=== PATIENT | male | born 1950 | race Caucasian/White ===

== ENCOUNTER 2018-07-27 20:39 | Inpatient (IN) | payer MEDICARE, BC ==
[~2018-07-27] VITALS: Ht 185.4 cm; Wt 64.9 kg
--- NOTE | 2018-07-27 10:30 | NUR ---
Received patient from ED awake, very confused. Unable to hold a normal conversation, or to sign any admit papers. Patient easily agitated , and verbalized seeing things that wernt there. Multiple attempts to reorient to the environment were made. Patient stated ' I am a baby', ' Give me the solomon to the apple'. VS are stable, patient in jacki chair at nurses station for close observation at this time.
--- NOTE | 2018-07-27 21:00 | NUR ---
Patient BIB pvt ambulance. Coming from [facility] on a 5150 for GD. AAOx2. Speech is clear, speaks in complete sentences. Per EMT patient is ambulatory with assistance, uses cane. No respiratory distress noted, no sob, no cough. No cardiovascular distress noted, all pulses palpable. No GI/ noted. Fall precautions implemented per protocol. Sitter at side
[2018-07-27 21:02] LABS: BASOPHILS % (AUTO) 0.9 % (0.0-2.0); EOSINOPHILS # (AUTO) 0.1 K/uL (0.0-0.7); EOSINOPHILS % (AUTO) 1.3 % (0.0-7.0); HEMATOCRIT 36.4 % (36.7-47.1); HEMOGLOBIN 12.4 g/dL (12.5-16.3); LYMPHOCYTES # (AUTO) 1.4 K/uL (20.0-40.0); LYMPHOCYTES % (AUTO) 29.8 % (20.5-51.5); MEAN CORPUSCULAR HEMOGLOBIN 30.9 uug (23.8-33.4); MEAN CORPUSCULAR HGB CONC 34 g/dL (32.5-36.3); MEAN CORPUSCULAR VOLUME 91.2 fL (73.0-96.2); MONOCYTES # (AUTO) 0.7 K/uL (2.0-10.0); MONOCYTES % (AUTO) 14.9 % (0.0-11.0); NEUTROPHILS # (AUTO) 2.6 K/uL (1.8-8.9); NEUTROPHILS % (AUTO) 53.1 % (38.5-71.5); PLATELET COUNT (AUTO) 209 K/uL (152-348); RED BLOOD CELL COUNT(AUTO) 3.99 MIL/uL (4.06-5.63); WHITE BLOOD COUNT (AUTO) 4.8 K/uL (3.6-10.2)
[2018-07-27 21:06] LABS: CREATININE 0.9 mg/dL (0.6-1.3); POTASSIUM 4.5 mmol/L (3.5-5.1)
[2018-07-27] MEDS ORDERED: SODIUM CHLORIDE 0.9% ×2 (21:13→21:14)
[2018-07-27] MEDS ORDERED: TRAZ-182 PO (21:13)
[2018-07-27] MEDS ORDERED: EMTR1TAB14 PO (21:13)
[2018-07-27] MEDS ORDERED: RITO100T PO (21:13)
[2018-07-27] MEDS ORDERED: [UNRECOGNIZED DRUG - OTHER] (21:13)
[2018-07-27] MEDS ORDERED: ATOR10TA PO (21:13)
[2018-07-27] MEDS ORDERED: ARIP15TA3 PO (21:13)
[2018-07-27] MEDS ORDERED: NAPR375T PO (21:13)
[2018-07-27] MEDS ORDERED: ALEN70TA6 PO (21:13)
[2018-07-27] MEDS ORDERED: CHOL200074 PO (21:13)
[2018-07-27] MEDS ORDERED: TRAM50TA2 PO (21:13)
[2018-07-27] MEDS ORDERED: ESCI20TA PO (21:13)
[2018-07-27] MEDS ORDERED: GABA-536 PO (21:13)
[2018-07-27] MEDS ORDERED: ALBU18HF2 IH (21:13)
[2018-07-27] MEDS ORDERED: RANI150T8 PO (21:13)
[2018-07-27] MEDS ORDERED: DARU600T2 PO (21:13)
[2018-07-27] MEDS ORDERED: LORA-259 PO (21:13)
[2018-07-27] MEDS ORDERED: UMEC1BLS IH (21:13)
[2018-07-27] MEDS ORDERED: ALBUTEROL 5 MG/ML (21:14)
--- NOTE | 2018-07-27 22:00 | NUR ---
Called to give report to MHU. Per Darrel, they will call when ready for report and transfer.
--- NOTE | 2018-07-27 22:29 | NUR ---
Report givent to PAUL Su
--- NOTE | 2018-07-27 22:50 | NUR ---
patient transfered to MHU on [facility], patient in stable condition.
[2018-07-27] MEDS ORDERED: MAGNESIUM HYDROXIDE 30 ML LIQUID UDC PO PRN (23:30)
[2018-07-27] MEDS ORDERED: MAG HYDROX/AL HYDROX/SIMETH 30 ML LIQUID UDC PO PRN (23:30)
[2018-07-27] MEDS: TEMAZEPAM 7.5 MG CAPSULE PO PRN (23:57)
--- NOTE | 2018-07-28 00:10 | NUR ---
Patient put in bed per request earlier, sleeping pill given at that time per order, bed alarm activated. A short time later, alarm sounded. Staff arrived , patient out of bed yelling and screaming, ' Give me food, order it, give me my computer now' ' I own a whole wing of this hotel '. Attempts made to calm patient down, reorient to environment. Food given, staff sitting in room with patient, who remained somewhat angry and agitated. A medication was given for agitation and staff continues to monitor patient for safety.
[2018-07-28] MEDS: CLONAZEPAM 0.5 MG TABLET PO PRN ×2 (00:48→05:21)
--- NOTE | 2018-07-28 03:18 | NUR ---
Patient in bed sleeping. Bed in lowest position and locked, alarm on. Staff doing frequent rounding. Continuing to monitor closely through out the night for safety and to meet any needs that may arise.
[2018-07-28] MEDS: ACETAMINOPHEN 325 MG TABLET PO PRN (05:00)
--- NOTE | 2018-07-28 06:27 | NUR ---
Patient slept very little last night. About 1 to 2 hours so far. Medicated during the night with little to no effect on the patient. However, Patient remained injury free do to the staff taking turns sitting with him, and safety plan in place. Patient continues to be confused and agitated. Will endorse plan of care to on coming shift.
[2018-07-28 07:30] VITALS: BP 100/67
[2018-07-28] MEDS ORDERED: Medication Not On Formulary EA (Aripiprazole (Abilify) 15 MG) PO SCH (10:15)
[2018-07-28] MEDS ORDERED: Medication Not On Formulary EA (Escitalopram Oxalate (Lexapro) 20 MG) PO SCH (10:15)
[2018-07-28] MEDS ORDERED: ALBUTEROL SULFATE 8 GM HFA.AER.AD IH SCH (10:45)
[2018-07-28] MEDS ORDERED: ALBUTEROL SULFATE 2.5 MG/3 ML NEBU NEB PRN (11:15)
[2018-07-28] MEDS: ARIPIPRAZOLE 5 MG TABLET PO SCH (11:31)
[2018-07-28] MEDS: ESCITALOPRAM OXALATE 10 MG TABLET PO SCH (11:31)
[2018-07-28] MEDS: GABAPENTIN 400 MG CAPSULE PO SCH ×2 (12:04→16:23)
[2018-07-28] MEDS: PREZISTA 600 MG PO SCH ×2 (14:06→16:24)
[2018-07-28] MEDS: ODEFSEY PO SCH (14:06)
[2018-07-28] MEDS: RITONAVIR 100 MG PO SCH ×2 (14:06→16:24)
[2018-07-28 14:36] LABS: *BILIRUBIN,URIN NEGATIVE (NEGATIVE); *CLARITY,URINE CLEAR (CLEAR); *COLOR,URINE YELLOW (YELLOW); *KETONES,URINE NEGATIVE (NEGATIVE); *UROBILINOGEN,URINE 0.2 E.U./dl (NORMAL); LEUKOCYTE ESTERASE ,URINE NEGATIVE (NEGATIVE); NITRITE, URINE NEGATIVE (NEGATIVE); PH,URINE 5.5 (5.0-8.0); UGLUCOSE NEGATIVE (NEGATIVE)
[2018-07-28 15:24] VITALS: BP 92/54
[2018-07-28 16:05] LABS: *BLOOD, URINE TRACE (NEGATIVE)
[2018-07-28 16:07] LABS: MUCUS,URINE FEW /LPF (0-FEW); RBC,URINE 0-3 /HPF (0-3); WBC,URINE NONE SEEN /HPF (0-3)
[2018-07-28] MEDS: FAMOTIDINE 20 MG TABLET PO SCH (16:23)
[2018-07-28] MEDS ORDERED: DARUNAVIR ETHANOLATE 600 MG PO SCH (17:00)
[2018-07-28] MEDS ORDERED: NAPROXEN 375 MG PO SCH (17:00)
[2018-07-28] MEDS: NAPROXEN 250 MG TABLET PO SCH (17:02)
[2018-07-28 20:00] VITALS: BP 93/51
--- NOTE | 2018-07-28 20:00 | NUR ---
RECEIVED PATIENT IN HIS ROOM. HE IS NOTED AWAKE A/O X 2. CONTINUE ON 1:1 SUPERVISION FOR SAFETY AND FALL PRECAUTION. PATIENT NOTED DELUSIONAL, APPEARS TO TALK TO HIMSELF, FLIGHT OF IDEAS, TANGENTAL, WITH BLUNTED AFFECT. HE IS ALSO NOTED WITH POOR INSIGHT AND JUDGMENT TO THE REASON FOR HIS ADMISSION TO MHU. V/S STABLE AT THIS TIME. HE WAS REASSURED FOR HIS SAFETY. WILL CONTINUE TO MONITOR.
[2018-07-28] MEDS: ATORVASTATIN 10 MG TABLET PO SCH (20:33)
[2018-07-28] MEDS: TRAZODONE 50 MG TABLET PO SCH (20:33)
--- NOTE | 2018-07-29 01:00 | NUR ---
A STIMULATOR FOR BACK PAIN WAS NOTED IMPLANTED IN HIS RIGHT SIDE OF HIS BACK. PER SISTER, PATIENT HAD THE STIMULATOR IMPLANTED 6 MONTHS AGO. WILL CONTINUE TO MONITOR.
[2018-07-29] MEDS: TEMAZEPAM 7.5 MG CAPSULE PO PRN (01:57)
--- NOTE | 2018-07-29 03:00 | NUR ---
A WOUND/ABRASION OF APPROX [id number] WAS NOTED TO THE LEFT BUTTOCKS/SACRAL AREA. Z-GUARD. MEPILEX DRESSING WAS APPLY, Z-GUARD AND A WOUND CONSUL WAS ALSO ORDERED. WILL CONTINUE WITH PLAN OF CARE.
[2018-07-29 07:21] LABS: CREATININE 0.7 mg/dL (0.6-1.3); POTASSIUM 4.2 mmol/L (3.5-5.1)
[2018-07-29 07:30] VITALS: BP 132/80
[2018-07-29] MEDS: FAMOTIDINE 20 MG TABLET PO SCH ×2 (08:36→16:15)
[2018-07-29] MEDS: NAPROXEN 250 MG TABLET PO SCH ×2 (08:36→17:34)
[2018-07-29] MEDS: GABAPENTIN 400 MG CAPSULE PO SCH ×3 (08:37→16:15)
[2018-07-29] MEDS: CHOLECALCIFEROL 1,000 UNIT TABLET PO SCH (08:37)
[2018-07-29] MEDS: PREZISTA 600 MG PO SCH ×2 (08:37→16:16)
[2018-07-29] MEDS: RITONAVIR 100 MG PO SCH ×2 (08:37→16:16)
[2018-07-29] MEDS: ESCITALOPRAM OXALATE 10 MG TABLET PO SCH (08:37)
[2018-07-29] MEDS: ARIPIPRAZOLE 5 MG TABLET PO SCH (08:37)
[2018-07-29] MEDS: ODEFSEY PO SCH (08:38)
[2018-07-29] MEDS ORDERED: ARIPIPRAZOLE 5 MG TABLET PO SCH (09:00)
--- NOTE | 2018-07-29 14:55 | NUR ---
WOUND CARE CONSULT: PT PRESENTS WITH HEALING ABRASION TO LEFT BUTTOCK. RECOMMENDATIONS MADE FOR SKIN PROTECTION AND WOUND CARE. DISCUSSED WITH NURSING STAFF. PT IS AMBULATORY AND CONTINENT. WILL SEE PRN. VILCHIS IN AGREEMENT WITH PLAN OF CARE. Addendum: 07/29/18 at 1456 by MILAGRO BERRY RN Amended: Links added.
[2018-07-29] MEDS: CLONAZEPAM 0.5 MG TABLET PO PRN (15:40)
--- NOTE | 2018-07-29 15:52 | NUR ---
Went to round on pt and noted that he is agitated and he keeps on trying to kiss the floor! Assisted pt to get up and tried to talk to him. Pt stated that he wants to have bowel mov't. Took pt to the toilet and still doing the same thing of trying to kiss the floor. [facility] and taken to nurses station and klonopin given as ordered. Pt at the moment is constantly repeating his name non stop. will continue to monitor.
--- NOTE | 2018-07-29 15:58 | NUR ---
Tried to collect urine specimen but pt too agitated and confused. Will cont to monitor.
[2018-07-29 16:12] VITALS: BP 105/59
[2018-07-29] MEDS: TRAMADOL HCL 50 MG TABLET PO PRN (16:15)
--- NOTE | 2018-07-29 18:55 | NUR ---
Resting in gerichair at this time. Unable to comply with fluid restriction of 1L for pt unable to understand concept of treatment at this time. In addition, Ensure with meals is in tray as well. Pt at height of agitation had skin tear of R elbow, picture taken. Wound cleansed with saline, pat dried with gauze and band aid applied. will cont to monitor.
[2018-07-29 19:39] VITALS: BP 105/59
[2018-07-29] MEDS: TRAZODONE 50 MG TABLET PO SCH (20:50)
[2018-07-29] MEDS: ATORVASTATIN 10 MG TABLET PO SCH (20:50)
[2018-07-30] MEDS: CLONAZEPAM 0.5 MG TABLET PO PRN ×3 (01:15→16:42)
[2018-07-30] MEDS: TEMAZEPAM 7.5 MG CAPSULE PO PRN ×2 (01:15→23:36)
--- NOTE | 2018-07-30 04:21 | NUR ---
Received patient in bed with 1:1 sitter at bedside for his safety. AAO x2, confused. No acute distress was noted. On fluid restriction 1 L/24 hour. Blunted affect. Compliant with medication. Urine sample collected and sent to the lab. All due medication given as ordered. Safety measures maintained. Continue to monitor and will endorse to the day shift nurse accordingly.
[2018-07-30 07:30] VITALS: BP 116/54
[2018-07-30 07:48] LABS: CREATININE 0.7 mg/dL (0.6-1.3); MAGNESIUM 1.9 mg/dL (1.8-2.4); PHOSPHOROUS 2.7 mg/dL (2.5-4.9); POTASSIUM 4.9 mmol/L (3.5-5.1); URIC ACID 3.1 mg/dL (3.5-7.2)
[2018-07-30] MEDS: TRAMADOL HCL 50 MG TABLET PO PRN ×2 (07:53→16:47)
[2018-07-30 07:58] LABS: THYROID STIMULATING HORMONE 3.331 mIU/mL (0.358-3.740)
[2018-07-30] MEDS: PREZISTA 600 MG PO SCH ×2 (08:09→16:03)
[2018-07-30] MEDS: ODEFSEY PO SCH (08:09)
[2018-07-30] MEDS: RITONAVIR 100 MG PO SCH ×2 (08:09→16:02)
[2018-07-30] MEDS: GABAPENTIN 400 MG CAPSULE PO SCH ×3 (08:10→16:01)
[2018-07-30] MEDS: CHOLECALCIFEROL 1,000 UNIT TABLET PO SCH (08:10)
[2018-07-30] MEDS: FAMOTIDINE 20 MG TABLET PO SCH ×2 (08:12→16:01)
[2018-07-30] MEDS: NAPROXEN 250 MG TABLET PO SCH ×2 (08:12→17:00)
[2018-07-30] MEDS: ESCITALOPRAM OXALATE 10 MG TABLET PO SCH (08:12)
[2018-07-30] MEDS ORDERED: ARIPIPRAZOLE 5 MG TABLET PO SCH (09:00)
--- NOTE | 2018-07-30 09:03 | NUR ---
Initial Discharge Instructions: The patient currently lives alone in his two-story condominium [[address] [facility] [place], [address]]. Per patient he would like to return there once discharged. The patient expressed that he has difficulty getting up and down the stairs and uses a cane to ambulate inside his home and uses a walker to ambulate out in public. Per Dontae ([phone]), pt's sister, she is worried about the pt. because hes recently lost so much weight and is fragile. SW Scratcher Tender/SW staff will continue to collaborate with interdisciplinary team to ensure safe and proper discharge planning.
[2018-07-30 16:28] VITALS: BP 110/64
--- NOTE | 2018-07-30 18:22 | NUR ---
received patient awake on bed, verbally responsive, on 1:1 sitter, secondary to fall risk and safety, patient med com pliant, hyperverbal, with loose association of thoughts, denies pain, denies SI nd HI, unsteady gait with PT,visited by family, will continue monitor
--- NOTE | 2018-07-30 19:55 | NUR ---
RECEIVED PATIENT IN HIS ROOM IN BED. HE IS NOTED AWAKE A/O X 2. CONTINUE ON 1:1 SUPERVISION FOR SAFETY AND FALL PRECAUTION. HE IS NOTED WITH FLIGHT OF IDEAS, HYPERVERBAL, AND DELUSIONAL. V/S STABLE AT THIS TIME. PT WAS REASSURED FOR HIS SAFETY. WILL CONTINUE TO MONITOR.
[2018-07-30 20:21] VITALS: BP 104/63
[2018-07-30] MEDS: TRAZODONE 50 MG TABLET PO SCH (20:25)
[2018-07-30] MEDS: ATORVASTATIN 10 MG TABLET PO SCH (20:25)
--- NOTE | 2018-07-30 23:40 | NUR ---
PATIENT NOTED RESTLESS, HYPERVERBAL, EASILY IRRITABLE AND DELUSIONAL. TEMAZEPAM 7.5 MG PO PRN WAS GIVEN FOR INSOMNIA. WILL CONTINUE TO MONITOR.
[2018-07-31] MEDS: CLONAZEPAM 0.5 MG TABLET PO PRN ×4 (02:16→23:52)
[2018-07-31] MEDS: TRAMADOL HCL 50 MG TABLET PO PRN ×3 (03:53→16:34)
--- NOTE | 2018-07-31 06:50 | NUR ---
PATIENT SLEPT FOR APPROX 2.45 HRS LAST NIGHT. HE CONTINUE WITH PRESSURED SPEECH, FLIGHT OF IDEAS, DISORGANIZED THOUGHTS. HE WILL CONTINUE ON 1:1 SUPERVISION.
[2018-07-31 07:53] VITALS: BP 131/74
[2018-07-31 08:02] LABS: CREATININE 0.8 mg/dL (0.6-1.3); MAGNESIUM 2.2 mg/dL (1.8-2.4); PHOSPHOROUS 3.2 mg/dL (2.5-4.9); POTASSIUM 4.6 mmol/L (3.5-5.1); URIC ACID 3.4 mg/dL (3.5-7.2)
[2018-07-31] MEDS: ESCITALOPRAM OXALATE 10 MG TABLET PO SCH (08:07)
[2018-07-31] MEDS: FAMOTIDINE 20 MG TABLET PO SCH ×2 (08:08→17:01)
[2018-07-31] MEDS: ACETAMINOPHEN 325 MG TABLET PO PRN (08:08)
[2018-07-31] MEDS: ARIPIPRAZOLE 10 MG TABLET PO SCH (08:08)
[2018-07-31] MEDS: CHOLECALCIFEROL 1,000 UNIT TABLET PO SCH (08:08)
[2018-07-31] MEDS: GABAPENTIN 400 MG CAPSULE PO SCH ×3 (08:08→17:01)
[2018-07-31] MEDS: NAPROXEN 250 MG TABLET PO SCH ×2 (08:09→17:00)
[2018-07-31] MEDS: ODEFSEY PO SCH (08:10)
[2018-07-31] MEDS: PREZISTA 600 MG PO SCH ×2 (08:10→17:00)
[2018-07-31] MEDS: RITONAVIR 100 MG PO SCH ×2 (08:17→17:00)
[2018-07-31] MEDS ORDERED: ARIPIPRAZOLE 5 MG TABLET PO SCH (09:00)
[2018-07-31 16:08] VITALS: BP 135/82
--- NOTE | 2018-07-31 16:49 | NUR ---
GROUP NOTE: Patients were asked to draw a picture of how they see themselves and to reflect on the picture. Subjective: "..." Objective: Patient was asleep in bed when social insurance adviser arrived to patient room. Patient unable to be woken up. Assessment: Patient presented calm and asleep. Plan: insulation worker will continue to encourage group attendance as scheduled. insulation worker will continue to provide support to the patient to encourage interaction with peers.
--- NOTE | 2018-07-31 18:32 | NUR ---
received patient awake on bed, alert oriented x1, with 1:1 sitter, patient reported having 2 1/2 hr sleep last night, patient irritable and complains of abdominal pain and wanting to have BM, prn meds given , patient still has loose thoughts, PATIENT HAD GOOD BM TODAY, will continue monitor
[2018-07-31] MEDS: TRAZODONE 50 MG TABLET PO SCH (20:36)
[2018-07-31] MEDS: ATORVASTATIN 10 MG TABLET PO SCH (20:36)
[2018-07-31 21:07] VITALS: BP 124/73
[2018-08-01] MEDS: CLONAZEPAM 0.5 MG TABLET PO PRN ×3 (03:20→23:35)
[2018-08-01] MEDS: ALENDRONATE SODIUM 70 MG TABLET PO SCH (05:55)
[2018-08-01 07:30] VITALS: BP 115/79
[2018-08-01] MEDS: ARIPIPRAZOLE 10 MG TABLET PO SCH (08:00)
[2018-08-01] MEDS: CHOLECALCIFEROL 1,000 UNIT TABLET PO SCH (08:00)
[2018-08-01] MEDS: FAMOTIDINE 20 MG TABLET PO SCH ×2 (08:00→17:23)
[2018-08-01] MEDS: ESCITALOPRAM OXALATE 10 MG TABLET PO SCH (08:00)
[2018-08-01] MEDS: GABAPENTIN 400 MG CAPSULE PO SCH ×3 (08:01→17:22)
[2018-08-01] MEDS: ODEFSEY PO SCH (08:01)
[2018-08-01] MEDS: PREZISTA 600 MG PO SCH ×2 (08:03→17:22)
[2018-08-01] MEDS: RITONAVIR 100 MG PO SCH ×2 (08:03→17:22)
[2018-08-01] MEDS: NAPROXEN 250 MG TABLET PO SCH ×2 (08:03→17:20)
--- NOTE | 2018-08-01 11:10 | NUR ---
Discharge planning: tunnel worker received phone call from patient sister, Dontae [[phone]], inquiring about about patient signing checks to pay bills. Per Dontae, patient , Gregory [[phone]] who is from [facility], is concerned that patient is not paying his bills and in particular his insurance bill. Per Dontae, Gregory would like patient to sign checks in order to pay the bills and states that on Sunday, Gregory was told this could not happen. tunnel worker explained to Dontae that patient cannot sign anything financial right now as he is in a crisis state and on an involuntary hold. tunnel worker further explained that hospital and patient would need to know where checks are being paid to to ensure patient finances are not jeopardized. Dontae stated she understood. tunnel worker informed Dontae that gag writer would need to consult with janitor supervisor, Amy, prior to giving a definitive answer to inquiry. Dontae was again understanding. tunnel worker has reached out to janitor supervisor and awaiting further guidance on matter. tunnel worker will continue to follow-up and remain available to family and patient.
--- NOTE | 2018-08-01 14:05 | NUR ---
Discharge planning: hot blast worker received approval from animal humane agent supervisor, Amy, to allow patient to sign personal checks with applicable bills present [see previous dc planning note] to ensure checks are being paid to correct bills and to ensure patient financial safety. hot blast worker arrived to patient bedside to facilitate conversation about having patient , Gregory, bringing in checks to have signed and paid toward bills. hot blast worker explained to patient that his , Gregory, is concerned about bills not being paid and would like to bring check in for patient to sign. Patient agreed to signing checks with bills present. hot blast worker then facilitated conversation about patient safety in his home. Patient stated that he lives at home alone in a 2-story house. Patient states that he uses a cane to ambulate through home. hot blast worker inquired how patient gets upstairs and patient stated he "scoots up steps" on his bottom. hot blast worker asked how patient pays his bills and patient stated that he receives assistance from "ADAP" for his medical bills and that his housing/utility bills are paid through his MADELYN which he pays monthly. Patient then became tangential and began talking about how he forgets that he leaves the stove on and gas on. Patient then stated that he has "only been once" and that he has "one wedding ring". Patient became labile and easily irritable. hot blast worker ended interview and left room. Per interview, it appears that patient may benefit from SNF placement to ensure patient safety. hot blast worker researched ADAP and found that it is an AIDS insurance assistance program called AIDS Drug Assistance Program and is managed under Office of AIDS Insurance Premium Payment (OA-YESSICA) Assistance [ ] that covers insurance premiums and medications. hot blast worker called [facility] and spoke with Kenia, who states that patient is covered under program until 11/03/2018 and that his insurance has been covered until 08/19/2018. Per Kenia, there are no outstanding bills that she shows, but suggests that patient call [facility] to ensure there are no outstanding balances. hot blast worker then called patient , Gregory [[phone]], and informed him that he could bring checks with bills to unit and have patient sign them. Gregory stated he understood. Gregory then stated that he is getting bills for patient insurance [[facility]] and is unsure if they are being paid. hot blast worker explained that patient is receiving ADAP and explained program. hot blast worker relayed information from Kenia [see above] and advised that he call [facility] to ensure there are no outstanding bills. Gregory agreed. hot blast worker then facilitated conversation about patient safety at home. Gregory agreed that patient is not safe at home in his current condition. Gregory agrees that patient should go to a SNF once ready for discharge to ensure patient safety. Per Gregory, he would like facilities in the [place], [place], or [place] areas. hot blast worker assured that an attempt to find placement in these areas would be made, but that finding placement in those areas is limited and patient may need alternative placement in the [facility] Area. Gregory agreed. Gregory then requested that perinatal social worker call his and patient friend, Vishnu Josse [[phone]], to explain this information as well as Gregory states he has difficulty fully understanding and would like additional support in hearing information. hot blast worker agreed and called Vishnu. hot blast worker called and spoke with Vishnu. hot blast worker explained all information as stated above. Vishnu was agreeable to information and to patient going to a SNF once ready for discharge. hot blast worker will look for SNF placement for patient and be in contact with patient and family. hot blast worker will continue to remain available to patient and family and to aide in a safe and proper discharge.
[2018-08-01 16:00] VITALS: BP 129/67
[2018-08-01 20:16] VITALS: BP 142/82
[2018-08-01] MEDS: TRAZODONE 50 MG TABLET PO SCH (20:17)
[2018-08-01] MEDS: ATORVASTATIN 10 MG TABLET PO SCH (20:17)
[2018-08-01] MEDS: TEMAZEPAM 7.5 MG CAPSULE PO PRN (23:35)
[2018-08-02 07:30] VITALS: BP 104/61
[2018-08-02] MEDS: GABAPENTIN 400 MG CAPSULE PO SCH ×3 (08:57→17:29)
[2018-08-02] MEDS: FAMOTIDINE 20 MG TABLET PO SCH ×2 (08:57→17:29)
[2018-08-02] MEDS: ARIPIPRAZOLE 10 MG TABLET PO SCH (08:57)
[2018-08-02] MEDS: ESCITALOPRAM OXALATE 10 MG TABLET PO SCH (08:57)
[2018-08-02] MEDS: CHOLECALCIFEROL 1,000 UNIT TABLET PO SCH (08:57)
[2018-08-02] MEDS: PREZISTA 600 MG PO SCH ×2 (08:58→17:27)
[2018-08-02] MEDS: ODEFSEY PO SCH (08:58)
[2018-08-02] MEDS: NAPROXEN 250 MG TABLET PO SCH ×2 (08:58→17:29)
[2018-08-02] MEDS: RITONAVIR 100 MG PO SCH ×2 (09:26→17:28)
[2018-08-02] MEDS: TRAMADOL HCL 50 MG TABLET PO PRN (12:14)
--- NOTE | 2018-08-02 13:00 | NUR ---
Gps/Clinical Engineer- Navi Patel DNP was informed of the discharge plan. Also reported blood sugar at 1145 BS was 428 covered with 15 units of regular insulin administered to his rloq of abdomen SQ. Addendum: 08/02/18 at 1340 by COORNA PANDEY LVN Charted on a wrong patient, error
[2018-08-02 16:00] VITALS: BP 98/56
--- NOTE | 2018-08-02 17:00 | NUR ---
PHARMACIST DEANDRA CALLED AND INFORMED 2 PTS OWN MEDICATIONS (PRIZISTA AND RESTNOVIR) WILL RUN OUT SOON. THIS NURSE CALLED PT'S PARTNER, ABRAHMA, TO INFORM HIM AND ASK IF HE CAN BRING MORE SUPPLY. ABRAHAM INFORMED THAT DUE TO TIME CONSTRAINTS FROM WORK, HE WILL BE UNABLE TO DRIVE TO THE HOSPITAL BUT WILL BE ABLE TO MAIL THE MEDICATIONS OUT TOMORROW (SUNDAY).
[2018-08-02] MEDS: Z GUARD REMEDY PASTE 57 GM TUBE TOP PRN (17:06)
--- NOTE | 2018-08-02 17:45 | NUR ---
Gps/Hull Molder- Remains with sitter for safety. Left coccygeal area with small wound, wounds care done as ordered, cleansed with NS, pat dry, z-guard applied, mepilex. Ambulated to the bathroom, continence noted. Lower ext. pain , has a pain pump right buttock area. Frequent repositioning encouraged, pressure relief.
--- NOTE | 2018-08-02 18:50 | NUR ---
Gps/Mortgage Loan Specialist- Fluid restrictions observed and in progress. Sitter was well informed
[2018-08-02 20:52] VITALS: BP 112/61
[2018-08-02] MEDS: ATORVASTATIN 10 MG TABLET PO SCH (21:19)
[2018-08-02] MEDS: TRAZODONE 50 MG TABLET PO SCH (21:19)
[2018-08-02] MEDS: CLONAZEPAM 0.5 MG TABLET PO PRN (21:19)
[2018-08-02] MEDS: TEMAZEPAM 7.5 MG CAPSULE PO PRN (23:22)
[2018-08-03] MEDS: CLONAZEPAM 0.5 MG TABLET PO PRN ×2 (04:58→14:41)
[2018-08-03] MEDS: Z GUARD REMEDY PASTE 57 GM TUBE TOP PRN (04:59)
[2018-08-03 07:30] VITALS: BP 112/60
[2018-08-03] MEDS: NAPROXEN 250 MG TABLET PO SCH ×2 (08:53→17:04)
[2018-08-03] MEDS: ODEFSEY PO SCH (08:53)
[2018-08-03] MEDS: PREZISTA 600 MG PO SCH ×2 (08:53→16:57)
[2018-08-03] MEDS: GABAPENTIN 400 MG CAPSULE PO SCH ×3 (08:54→16:54)
[2018-08-03] MEDS: FAMOTIDINE 20 MG TABLET PO SCH ×2 (08:54→16:54)
[2018-08-03] MEDS: ESCITALOPRAM OXALATE 10 MG TABLET PO SCH (08:54)
[2018-08-03] MEDS: ARIPIPRAZOLE 10 MG TABLET PO SCH (08:54)
[2018-08-03] MEDS: CHOLECALCIFEROL 1,000 UNIT TABLET PO SCH (08:54)
[2018-08-03] MEDS: RITONAVIR 100 MG PO SCH ×2 (09:06→16:56)
[2018-08-03 16:00] VITALS: BP 111/53
--- NOTE | 2018-08-03 17:36 | NUR ---
Gps/Quality Improvement Analyst- Complained of being constipated, warm prune juice was offered,. Fluid restrictions in progress, and observed, sitter was well informed ,pt was also instructed fluid limitations. Patches of brusings on his forearms, refusing to take naprosyn this pm, claimed it causes bruising. Pressure relief coccygeal area . Small sore left buttock, z-guard nova. as ordered. Patient was able to talk to his sister from [place].
[2018-08-03] MEDS: ATORVASTATIN 10 MG TABLET PO SCH (20:31)
[2018-08-03] MEDS: TRAZODONE 50 MG TABLET PO SCH (20:31)
[2018-08-03 20:33] VITALS: BP 101/63
[2018-08-03] MEDS: TEMAZEPAM 7.5 MG CAPSULE PO PRN (23:11)
[2018-08-03] MEDS: TRAMADOL HCL 50 MG TABLET PO PRN (23:12)
[2018-08-04] MEDS: CLONAZEPAM 0.5 MG TABLET PO PRN ×3 (00:25→17:09)
--- NOTE | 2018-08-04 06:47 | NUR ---
End of Shift note 1-1 Remains for pt's safety received tramodol for right hip area pain restoril for sleep non effective and klonopin for anxiety slept intermitten 2.15 hour through the shift.
[2018-08-04 07:30] VITALS: BP 125/84
[2018-08-04] MEDS: TRAMADOL HCL 50 MG TABLET PO PRN (08:31)
[2018-08-04] MEDS: NAPROXEN 250 MG TABLET PO SCH ×2 (09:02→17:09)
[2018-08-04] MEDS: FAMOTIDINE 20 MG TABLET PO SCH ×2 (09:02→17:09)
[2018-08-04] MEDS: ARIPIPRAZOLE 10 MG TABLET PO SCH (09:02)
[2018-08-04] MEDS: ESCITALOPRAM OXALATE 10 MG TABLET PO SCH (09:02)
[2018-08-04] MEDS: GABAPENTIN 400 MG CAPSULE PO SCH ×3 (09:02→17:09)
[2018-08-04] MEDS: CHOLECALCIFEROL 1,000 UNIT TABLET PO SCH (09:03)
[2018-08-04] MEDS: ODEFSEY PO SCH (09:03)
[2018-08-04] MEDS: PREZISTA 600 MG PO SCH ×2 (09:03→17:09)
[2018-08-04] MEDS: RITONAVIR 100 MG PO SCH ×2 (09:03→17:09)
[2018-08-04 16:00] VITALS: BP 92/58
[2018-08-04 20:00] VITALS: BP 112/69
[2018-08-04] MEDS: ATORVASTATIN 10 MG TABLET PO SCH (20:06)
[2018-08-04] MEDS: ACETAMINOPHEN 325 MG TABLET PO PRN (20:06)
[2018-08-04] MEDS: TRAZODONE 50 MG TABLET PO SCH (20:07)
[2018-08-05] MEDS: TEMAZEPAM 7.5 MG CAPSULE PO PRN (01:41)
[2018-08-05] MEDS: TRAMADOL HCL 50 MG TABLET PO PRN ×2 (02:42→13:17)
[2018-08-05] MEDS: CLONAZEPAM 0.5 MG TABLET PO PRN ×3 (04:03→20:24)
--- NOTE | 2018-08-05 05:19 | NUR ---
PT PLEASANT WHEN APPROACHED. PT COMPLIANT WITH CARE AND MEDICATION. PT HAVE EPISODES OF CONFUSION, TRYING TO GET OUT OF THE BED, MURMUR TO HIMSELF. 1:1 SITTER FOR SAFETY. TURNED AND REPOSITIONED. PRESCRIBED MEDICATION GIVEN AND PT TOLERATED IT WELL. SAFETY AND COMFORT PROVIDED. WILL ENDORSE ACCORDINGLY TO INCOMING NURSE FOR CONTINUITY OF CARE.
--- NOTE | 2018-08-05 05:24 | NUR ---
PT GIVEN ULTRAM FOR GENERALIZED PAIN AND KLONOPIN FOR RESTLESSNESS, ANXIETY AND TRYING TO GET OUT OF THE BED. PT TOLERATED THE MEDICATION. SAFETY AND COMFORT PROVIDED. SITTER AT BEDSIDE. ENDORSE TO INCOMING NURSE FOR CONTINUITY OF CARE.
[2018-08-05 07:30] VITALS: BP 100/55
[2018-08-05 07:34] LABS: CREATININE 0.9 mg/dL (0.6-1.3); POTASSIUM 4.5 mmol/L (3.5-5.1); URIC ACID 3.9 mg/dL (3.5-7.2)
[2018-08-05] MEDS: NAPROXEN 250 MG TABLET PO SCH ×2 (08:33→17:13)
[2018-08-05] MEDS: GABAPENTIN 400 MG CAPSULE PO SCH ×3 (08:33→17:13)
[2018-08-05] MEDS: CHOLECALCIFEROL 1,000 UNIT TABLET PO SCH (08:33)
[2018-08-05] MEDS: FAMOTIDINE 20 MG TABLET PO SCH ×2 (08:33→17:13)
[2018-08-05] MEDS: ESCITALOPRAM OXALATE 10 MG TABLET PO SCH (08:33)
[2018-08-05] MEDS: ARIPIPRAZOLE 10 MG TABLET PO SCH (08:33)
[2018-08-05] MEDS: RITONAVIR 100 MG PO SCH ×2 (08:35→17:00)
[2018-08-05] MEDS: ODEFSEY PO SCH (08:35)
[2018-08-05] MEDS: PREZISTA 600 MG PO SCH ×2 (08:36→17:00)
[2018-08-05] MEDS: Z GUARD REMEDY PASTE 57 GM TUBE TOP PRN (10:18)
--- NOTE | 2018-08-05 10:36 | NUR ---
Discharge planning: hand bindery assembly worker faxed SNF referrals to three fdc facilities in the [facility]. Per conversation with patient , Gregory, he would prefer that patient be placed in the [facility] [see note dated 08/01 at 14:05]. The following SNFs have been contacted: [facility] [[phone]]: hand bindery assembly worker called and spoke with clerical coordinator, Jackie, who states they cannot accept patient due to mental health issues. [facility] [[phone]; fax: [phone]]: hand bindery assembly worker faxed referrals packet to clerical coordinatorYas, and is currently awaiting call back. [facility] [[phone]; fax: [phone]]: hand bindery assembly worker faxed referral packet to clerical coordinatorLyric, and is currently awaiting call back. Addendum: 08/05/18 at 1424 by MARIAELENA RAMÍREZ hand bindery assembly worker called and spoke with Yas clerical coordinator, at [facility] [[phone]; fax: [phone]] who states they cannot accept patient due to "mental health conditions". hand bindery assembly worker called and spoke with Lyric, clerical coordinator, at [facility] [[phone]; fax: [phone]] who states they cannot accept patient due to "no male beds". hand bindery assembly worker will continue to look for fdc placement.
--- NOTE | 2018-08-05 14:33 | NUR ---
Discharge planning: film processing utility worker faxed SNF referral packets to [facility] [ ; ] and to [facility] [ ; ]. film processing utility worker waiting to hear back from facilities on acceptance.
[2018-08-05 15:09] VITALS: BP 134/71
[2018-08-05 20:00] VITALS: BP 112/70
[2018-08-05] MEDS: ATORVASTATIN 10 MG TABLET PO SCH (20:24)
[2018-08-05] MEDS: TRAZODONE 50 MG TABLET PO SCH (21:37)
[2018-08-06] MEDS: TEMAZEPAM 7.5 MG CAPSULE PO PRN (01:40)
[2018-08-06] MEDS: TRAMADOL HCL 50 MG TABLET PO PRN ×2 (01:41→08:02)
--- NOTE | 2018-08-06 02:21 | NUR ---
Restoril 7.5mg administered for insomnia and restlessness. Ultram 50mg administered for c/o 9/10 generalized pain. Pt appears to be resting comfortably at this time, eyes closed, breathing even and unlabored. Remains with 1:1 sitter at att times for safety.
[2018-08-06 07:30] VITALS: BP 127/73
[2018-08-06] MEDS: ARIPIPRAZOLE 10 MG TABLET PO SCH (08:00)
[2018-08-06] MEDS: GABAPENTIN 400 MG CAPSULE PO SCH ×3 (08:00→16:42)
[2018-08-06] MEDS: FAMOTIDINE 20 MG TABLET PO SCH ×2 (08:01→16:42)
[2018-08-06] MEDS: ESCITALOPRAM OXALATE 10 MG TABLET PO SCH (08:01)
[2018-08-06] MEDS: CHOLECALCIFEROL 1,000 UNIT TABLET PO SCH (08:01)
[2018-08-06] MEDS: CLONAZEPAM 0.5 MG TABLET PO PRN ×2 (08:04→22:53)
[2018-08-06] MEDS: ODEFSEY PO SCH (08:05)
[2018-08-06] MEDS: NAPROXEN 250 MG TABLET PO SCH ×2 (08:05→17:02)
[2018-08-06] MEDS: PREZISTA 600 MG PO SCH ×2 (09:00→16:43)
[2018-08-06] MEDS: RITONAVIR 100 MG PO SCH ×2 (09:00→16:43)
[2018-08-06 15:03] VITALS: BP 92/33
--- NOTE | 2018-08-06 18:02 | NUR ---
received patient awake on bed, with 1:1 sitter for unsteady gait on fluid restriction of 1 liter per day, consumed 750ml, patient compliant to medicine , verbalizes pain at 6/10, prn meds given , patients mood is calm, able to have conversation staff, applied z guard to lower back redness, had shower, kept comfortable the whole shift, able to walk with the sitter using walker, received patient personnal medication and send it to pharmacy will continue monitor,
--- NOTE | 2018-08-06 19:30 | NUR ---
Received patient in the jacki chair in the TV room, with sitter at bedside. Awake, confused, incoherent. but denies any pain/discomforts at this time. Continue to monitor.
[2018-08-06 20:00] VITALS: BP 112/61
[2018-08-06] MEDS: ATORVASTATIN 10 MG TABLET PO SCH (20:36)
[2018-08-06] MEDS: TRAZODONE 50 MG TABLET PO SCH (20:36)
[2018-08-07] MEDS: CLONAZEPAM 0.5 MG TABLET PO PRN ×2 (02:57→23:41)
[2018-08-07] MEDS: TRAMADOL HCL 50 MG TABLET PO PRN (03:16)
[2018-08-07 07:30] VITALS: BP 99/59
[2018-08-07] MEDS: ARIPIPRAZOLE 10 MG TABLET PO SCH (08:24)
[2018-08-07] MEDS: GABAPENTIN 400 MG CAPSULE PO SCH ×3 (08:25→17:39)
[2018-08-07] MEDS: FAMOTIDINE 20 MG TABLET PO SCH ×2 (08:25→17:38)
[2018-08-07] MEDS: NAPROXEN 250 MG TABLET PO SCH ×2 (08:25→17:39)
[2018-08-07] MEDS: CHOLECALCIFEROL 1,000 UNIT TABLET PO SCH (08:25)
[2018-08-07] MEDS: ODEFSEY PO SCH (08:26)
[2018-08-07] MEDS: PREZISTA 600 MG PO SCH ×2 (08:26→17:39)
[2018-08-07] MEDS: ESCITALOPRAM OXALATE 10 MG TABLET PO SCH (08:26)
[2018-08-07] MEDS: RITONAVIR 100 MG PO SCH ×2 (08:26→17:39)
[2018-08-07 16:00] VITALS: BP 95/56
[2018-08-07 20:06] VITALS: BP 106/64
[2018-08-07] MEDS: ATORVASTATIN 10 MG TABLET PO SCH (20:14)
[2018-08-07] MEDS: TRAZODONE 50 MG TABLET PO SCH (20:18)
[2018-08-07] MEDS ORDERED: MIRTAZAPINE 15 MG TABLET PO SCH (21:00)
[2018-08-07] MEDS: TEMAZEPAM 7.5 MG CAPSULE PO PRN (21:21)
--- NOTE | 2018-08-08 02:52 | NUR ---
Pt in bed asleep. Easily arousable to name. 1:1 sitter at bedside. No s/s of acute distress noted. Tolerating fluid restriction well. Took all due meds. Noted cooperative with plan of care. Able to verbalize simple needs. Attempts to get out of bed unassisted, redirectable. Continent and assisted to bathroom as needed. Denies pain at this time. Will continue to monitor.
[2018-08-08] MEDS: CLONAZEPAM 0.5 MG TABLET PO PRN (04:03)
[2018-08-08] MEDS: ALENDRONATE SODIUM 70 MG TABLET PO SCH (06:25)
[2018-08-08 07:02] LABS: BASOPHILS % (AUTO) 1.1 % (0.0-2.0); EOSINOPHILS # (AUTO) 0.1 K/uL (0.0-0.7); EOSINOPHILS % (AUTO) 2.1 % (0.0-7.0); HEMATOCRIT 39.3 % (36.7-47.1); HEMOGLOBIN 13.2 g/dL (12.5-16.3); LYMPHOCYTES # (AUTO) 1.1 K/uL (20.0-40.0); LYMPHOCYTES % (AUTO) 26.4 % (20.5-51.5); MEAN CORPUSCULAR HEMOGLOBIN 30.9 uug (23.8-33.4); MEAN CORPUSCULAR HGB CONC 34 g/dL (32.5-36.3); MEAN CORPUSCULAR VOLUME 92.1 fL (73.0-96.2); MONOCYTES # (AUTO) 0.4 K/uL (2.0-10.0); MONOCYTES % (AUTO) 8.8 % (0.0-11.0); NEUTROPHILS # (AUTO) 2.6 K/uL (1.8-8.9); NEUTROPHILS % (AUTO) 61.6 % (38.5-71.5); PLATELET COUNT (AUTO) 213 K/uL (152-348); RED BLOOD CELL COUNT(AUTO) 4.27 MIL/uL (4.06-5.63); WHITE BLOOD COUNT (AUTO) 4.3 K/uL (3.6-10.2)
[2018-08-08 07:15] LABS: CREATININE 0.9 mg/dL (0.6-1.3); PHOSPHOROUS 2.9 mg/dL (2.5-4.9); POTASSIUM 4.3 mmol/L (3.5-5.1)
[2018-08-08 07:30] VITALS: BP 107/65
--- NOTE | 2018-08-08 08:26 | NUR ---
DISCHARGE NOTE: Patient will be discharged to [facility] [[address] [facility] [address] [facility] [facility], [place] [address]; ] and transportation will be provided by ambulance at 1:00pm. Please arrange ambulance transportation for patient. Acceptance to facility has been provided by Cheryl, financial coordinator, at facility who states they are ready to accept the patient today. Patient is AxOx1-2 and denies suicidal and homicidal ideations. ash worker has called and spoken with Gregory [[phone]], patient , who is aware and agreeable with discharge plan. Patient will be followed by Dr. Trotter (furniture and bedding inspector) and Dr. Naranjo (psychiatrist) at the facility. Patient has been provided with mental health resources including [facility] [[phone]], [facility] [[phone]], and National Suicide Prevention Lifeline [ ]. Addendum: 08/08/18 at 1032 by MARIAELENA RAMÍREZ Correction: Patient will be followed by Dr. Severino (furniture and bedding inspector) at facility.
[2018-08-08] MEDS: GABAPENTIN 400 MG CAPSULE PO SCH ×2 (08:47→12:58)
[2018-08-08] MEDS: CHOLECALCIFEROL 1,000 UNIT TABLET PO SCH (08:52)
[2018-08-08] MEDS: ODEFSEY PO SCH (08:57)
[2018-08-08] MEDS: NAPROXEN 250 MG TABLET PO SCH (08:57)
[2018-08-08] MEDS: ARIPIPRAZOLE 10 MG TABLET PO SCH (08:57)
[2018-08-08] MEDS: FAMOTIDINE 20 MG TABLET PO SCH (08:57)
[2018-08-08] MEDS: RITONAVIR 100 MG PO SCH (08:57)
[2018-08-08] MEDS: PREZISTA 600 MG PO SCH (08:58)
--- NOTE | 2018-08-08 10:41 | NUR ---
Firearms report: social worker masters completed and submitted a [employer] firearms report for a 5250 GD certification.
--- NOTE | 2018-08-08 15:00 | NUR ---
Patient is being discharged to [facility] via ambulance. Pt is aware. Pt's sister Dontae Valdez was notified. Pt's is aware as well. VS are stable. No agitation. All belongings returned. Report was given to GLENDA Thomas.
== END 2018-08-08 15:00 | DRG 885 ==
LOC: ER 20:41 → GPS 22:28
PROVIDERS: ADMIT Psychiatry & Neurology Psychiatry; ATTEND Psychiatry & Neurology Psychiatry
DX: F31.5 Bipolar disorder, current episode depressed, severe, with psychotic features (principal); E22.2 Syndrome of inappropriate secretion of antidiuretic hormone; Z68.1 Body mass index [BMI] 19.9 or less, adult; E44.1 Mild protein-calorie malnutrition; G89.29 Other chronic pain; E78.5 Hyperlipidemia, unspecified; J45.909 Unspecified asthma, uncomplicated; J84.10 Pulmonary fibrosis, unspecified; Z88.0 Allergy status to penicillin; Z79.899 Other long term (current) drug therapy; Z73.6 Limitation of activities due to disability
CPT/HCPCS: 36415; 71045; 71250; 82533; 83735; 84100; 84300; 84443; 84550; 85025; 93005; 97110; 97116; 97530; A4663; J8499

== ENCOUNTER 2018-11-10 14:38 | Inpatient (IN) | payer MEDICARE, BC ==
[~2018-11-10] VITALS: Ht 185.4 cm; Wt 66.2 kg
[~2018-11-10 14:38] MED LIST: ALBU18HF2 IH; ALBUTEROL 5 MG/ML; ALEN70TA6 PO; ARIP15TA3 PO; ATOR10TA PO; CHOL200074 PO; DARU600T2 PO; EMTR1TAB14 PO; ESCI20TA PO; GABA-536 PO; LORA-259 PO; NAPR375T PO; RANI150T8 PO; RITO100T PO; SODIUM CHLORIDE 0.9%; TRAM50TA2 PO; TRAZ-182 PO; UMEC1BLS IH
--- NOTE | 2018-11-10 15:26 | NUR ---
1 TO 1 SITTER AT THE BEDSIDE.
[2018-11-10 15:49] LABS: BASOPHILS # (AUTO) 0.1 K/uL (0.0-8.0); BASOPHILS % (AUTO) 1.3 % (0.0-2.0); EOSINOPHILS % (AUTO) 0.2 % (0.0-7.0); HEMATOCRIT 36.8 % (36.7-47.1); HEMOGLOBIN 11.9 g/dL (12.5-16.3); LYMPHOCYTES # (AUTO) 2.2 K/uL (20.0-40.0); LYMPHOCYTES % (AUTO) 24.3 % (20.5-51.5); MEAN CORPUSCULAR HEMOGLOBIN 29.3 uug (23.8-33.4); MEAN CORPUSCULAR HGB CONC 32 g/dL (32.5-36.3); MEAN CORPUSCULAR VOLUME 90.7 fL (73.0-96.2); MONOCYTES # (AUTO) 1.1 K/uL (2.0-10.0); MONOCYTES % (AUTO) 12.5 % (0.0-11.0); NEUTROPHILS # (AUTO) 5.5 K/uL (1.8-8.9); NEUTROPHILS % (AUTO) 61.7 % (38.5-71.5); PLATELET COUNT (AUTO) 275 K/uL (152-348); RED BLOOD CELL COUNT(AUTO) 4.06 MIL/uL (4.06-5.63); WHITE BLOOD COUNT (AUTO) 8.9 K/uL (3.6-10.2)
[2018-11-10 15:56] LABS: CARBON DIOXIDE 31 mmol/L (21-32); CHLORIDE 95 mmol/L (98-107); GLUCOSE 77 mg/dL (74-106); POTASSIUM 4.4 mmol/L (3.5-5.1); UREA NITROGEN, BLOOD 25 mg/dL (7-18)
[2018-11-10 16:02] LABS: ACETAMINOPHEN < 2.0 ug/mL (10-30); ALANINE AMINOTRANSFERASE 22 U/L (16-63); ALKALINE PHOSPHATASE 82 U/L (50-136); ASPARTATE AMINOTRANSFERASE 19 U/L (15-37); BILIRUBIN,DIRECT 0.1 mg/dL (0.0-0.2); BILIRUBIN,TOTAL 0.4 mg/dL (0.2-1.0); TOTAL PROTEIN, SERUM 6.2 g/dL (6.4-8.2)
--- NOTE | 2018-11-10 16:05 | NUR ---
Sophia Pruitt RN at [facility].
[2018-11-10 16:09] LABS: ETHANOL 4 MG/DL (0-0); THYROID STIMULATING HORMONE 5.014 mIU/mL (0.358-3.740)
--- NOTE | 2018-11-10 16:24 | NUR ---
Urine collected and sent to LAB.
[2018-11-10 16:37] LABS: *BILIRUBIN,URIN NEGATIVE (NEGATIVE); *CLARITY,URINE CLEAR (CLEAR); *COLOR,URINE YELLOW (YELLOW); *KETONES,URINE NEGATIVE (NEGATIVE); *UROBILINOGEN,URINE 0.2 E.U./dl (NORMAL); LEUKOCYTE ESTERASE ,URINE NEGATIVE (NEGATIVE); NITRITE, URINE NEGATIVE (NEGATIVE); UGLUCOSE NEGATIVE (NEGATIVE)
--- NOTE | 2018-11-10 16:40 | NUR ---
Pt placed on 5150 hold for GD by Sophia DOSHI.
[2018-11-10 16:45] LABS: *BLOOD, URINE TRACE (NEGATIVE)
[2018-11-10 16:50] LABS: BACTERIA,URINE NONE SEEN /HPF (NONE SEEN); SQUAMOUS EPITHELIAL CELL,UR NONE SEEN /HPF (NONE SEEN); WBC,URINE 0-3 /HPF (0-3)
[2018-11-10 16:55] LABS: *AMPHETAMINE, URINE NEGATIVE (NEGATIVE); *BARBITURATE, URINE NEGATIVE (NEGATIVE); *CANNABINOID, URINE NEGATIVE (NEGATIVE); *COCCAINE, URINE NEGATIVE (NEGATIVE); *OPIATE, URINE NEGATIVE (NEGATIVE); *PHENCYCLIDINE SCREEN,URINE NEGATIVE (NEGATIVE)
[2018-11-10] MEDS ORDERED: ALBU2.5V38 IH (17:10)
[2018-11-10] MEDS ORDERED: FAMO20TA8 PO (17:10)
[2018-11-10] MEDS ORDERED: MIRT15TA PO (17:10)
[2018-11-10] MEDS ORDERED: MAGN400O6 PO (17:10)
[2018-11-10] MEDS ORDERED: DIVA250T4 PO (17:10)
[2018-11-10] MEDS ORDERED: DOCU-141 PO (17:10)
[2018-11-10] MEDS ORDERED: MAALOX PO (17:10)
[2018-11-10] MEDS ORDERED: BISA10SU61 RC (17:10)
[2018-11-10] MEDS ORDERED: NA P133E RC (17:10)
[2018-11-10] MEDS ORDERED: ALEN70TA3 PO (17:10)
[2018-11-10] MEDS ORDERED: ACET-2154 PO (17:10)
[2018-11-10] MEDS ORDERED: UMEC1BLS IH (17:10)
[2018-11-10] MEDS ORDERED: MAGNESIUM HYDROXIDE 30 ML LIQUID UDC PO PRN (18:30)
[2018-11-10] MEDS ORDERED: MAG HYDROX/AL HYDROX/SIMETH 30 ML LIQUID UDC PO PRN (18:30)
[2018-11-10] MEDS ORDERED: ACETAMINOPHEN 325 MG TABLET PO PRN (18:30)
--- NOTE | 2018-11-10 18:38 | NUR ---
Patient in from ED at this time AAOX1. patient restless agitated, threatening to leave facility AMA. SBP of 164/92, with HR of 101, repeat sbp of 176/96 with Hr of 99, temp of 97.5 axillary, saturation of 97% on RA. Patient delusional stating he owns this hospital.
[2018-11-10 18:40] VITALS: BP 164/92
--- NOTE | 2018-11-10 18:48 | NUR ---
Epic group attending N.P. called to be notified of high blood pressure. Awaiting call back. Will endorse if needed it.
--- NOTE | 2018-11-10 19:14 | NUR ---
Report given to incoming R.N. Pending completion of admission endorse to continue with care plan. R.N. informed that Attending from Epic group called to report high sbp.
[2018-11-10] MEDS ORDERED: ALBUTEROL SULFATE 2.5 MG/3 ML NEBU IH PRN ×2 (19:15→21:51)
[2018-11-10] MEDS ORDERED: BISACODYL 10 MG SUPP.RECT RC PRN (19:15)
[2018-11-10] MEDS ORDERED: ALBUTEROL SULFATE 8 GM HFA.AER.AD IH SCH (19:15)
[2018-11-10] MEDS ORDERED: FLEET ENEMA 133 ML BOTTLE RC PRN (19:15)
[2018-11-10] MEDS: LORAZEPAM 0.5 MG TABLET PO PRN ×2 (19:30→23:30)
--- NOTE | 2018-11-10 19:30 | NUR ---
RECEIVED PATIENT IN THE HALLWAY SITTING IN A CHAIR. HE IS NOTED A/O X 3. ABLE TO AMBULATE WITH SLOW BUT STEADY GAIT. HE IS NOTED WITH RAPID SPEECH, FLIGHT OF IDEAS, HYPERVERBAL PARANOID AND DELUSIONAL, EASILY IRRITABLE, ELEVATED BLOOD PRESSURE. ATIVAN 0.5MG PO PRN WAS GIVEN. PATIENT WAS ADMITTED FOR[facility], WHERE HE WAS MEDICALLY CLEAREDM, TO [facility] ON A 5150 HOLD FOR GD. HOLD WILL BE UP ON 11/13/18 AT 1620. PER HOLD, [facility] HE WAS OBSERVED HYPERVERBAL, LOUD AT TIMES, SEVERE MOOD SWINGS FROM CRYING TO LAUGHING; PT IS DELUSIONAL AND HE THINKS THAT HE DOES NOT HAVE EARS.HE WAS OBSERVED POUNDING THE COUNTER TOPS, HE BECAME AGGRESSIVE WHEN REDIRECTED. PT HAS POOR INSIGHT AND JUDGMENT. FACE TO FACE ASSESSMENT WAS DONE, PATIENT APPEARS TO REFECT WHAT IS WRITTEN ON THE HOLD. PATIENT REFUSED TO SIGN ADMISSION PAPERS, HE WAS NOTED AGITATED. PT IS UNDER THE CARE OF DR DOOLEY. WILL CONTINUE TO MONITOR,
--- NOTE | 2018-11-10 20:00 | NUR ---
PATIENT BLOOD PRESSURE IS 127/79. HE IS NOTED LESS AGITATED. WILL CONTINUE TO MONITOR.
[2018-11-10 21:03] VITALS: BP 127/79
[2018-11-10] MEDS: TEMAZEPAM 7.5 MG CAPSULE PO PRN (21:06)
[2018-11-10] MEDS: CHOLECALCIFEROL 1,000 UNIT TABLET PO SCH (22:15)
[2018-11-10] MEDS: ACETAMINOPHEN 325 MG TABLET PO PRN (23:42)
[2018-11-11] MEDS ORDERED: OLANZAPINE 10 MG VIAL IM ONE
[2018-11-11] MEDS ORDERED: LORAZEPAM 2 MG/1 ML VIAL IM ONE
--- NOTE | 2018-11-11 00:10 | NUR ---
GPS: CHEMICAL RESTRAINS. PATIENT WAS NOTED SEVERELY AGITATED, ANXIOUS, RESTLESS, YELLING, SCREAMING, GROSSLY PSYCHOTIC, DELUSIONAL. HE WAS UNABLE TO BE REDIRECTED, MULTIPLE REDIRECTION GIVEN, YET INEFFECTIVE PT IS UNABLE TO CONTRACT FOR SAFETY. DR DOOLEY WAS NOTIFY VIA PHONE CALLED AT 2350 (11/10) OF PATIENT BEHAVIOR AND NEW TELEPHONE ORDERS WERE OBTAINED TO ADMINISTER ATIVAN 0.5MG IM, BENADRYL 25MG IM AND ZYPREXA 5MG IM STAT ORDERS ONE TIME ONLY. ORDERS WERE NOTED AND CARRIED OUT AT 0010. WILL CONTINUE TO MONITOR.
--- NOTE | 2018-11-11 01:10 | NUR ---
ONE HOUR FACE TO FACE ASSESSMENT DONE. PATIENT NOTED SLEEPING COMFORTABLE IN HIS BED, BUT EASILY AROUSABLE. V/S: B/P 120/68MMHG; PULSE 81BPM, RESPIRATION 18 BREATHS/MIN AND 95%O2 SAT. WILL CONTINUE TO MONITOR.
[2018-11-11] MEDS: LORAZEPAM 0.5 MG TABLET PO PRN ×4 (06:43→22:50)
[2018-11-11 07:30] VITALS: BP 121/83
[2018-11-11] MEDS ORDERED: DARUNAVIR ETHANOLATE 600 MG PO SCH (09:00)
[2018-11-11] MEDS ORDERED: NAPROXEN 375 MG PO SCH (09:00)
[2018-11-11] MEDS: NAPROXEN 250 MG TABLET PO SCH ×2 (09:22→17:12)
[2018-11-11] MEDS: FAMOTIDINE 20 MG TABLET PO SCH ×2 (09:23→17:12)
[2018-11-11] MEDS: ATORVASTATIN 10 MG TABLET PO SCH (09:23)
[2018-11-11] MEDS: DOCUSATE SODIUM 100 MG CAPSULE PO SCH (09:23)
[2018-11-11] MEDS ORDERED: diphenhydrAMINE 50 MG/1 ML VIAL IM ONE ×2 (14:00)
[2018-11-11] MEDS ORDERED: HALOPERIDOL LACTATE 5 MG/1 ML VIAL IM ONE (14:00)
--- NOTE | 2018-11-11 14:00 | NUR ---
CALLED AND INFORMED DR. DOOLEY THAT PATIENT WAS BECOMING AGITATED, COMBATIVE, HARD TO REDIRECT, AND GOING INTO DIFFERENT PATIENT'S ROOMS. RECEIVED ORDERS FOR HALDOL2.5MG IM AND BENADRYL 50 MG IM ONCE, 1:1 SITTER. ORDERS NOTED AND CARRIED OUT. WILL COTNINUE TO MONITOR CLOSELY
--- NOTE | 2018-11-11 14:10 | NUR ---
ADMINISTERED HALDOL 2.5 MG IM AND BENADRYL 50 MG IM ONCE ON LEFT DELTOID, NURSE ACCOMPANIED BY TWO SECURITY GUARDS. PATIENT WELL TOLERATED. WILL CONTINUE TO MONITOR CLOSELY
--- NOTE | 2018-11-11 14:30 | NUR ---
SPOKE TO PATIENT'S PARTNER ABRAHAM REGARDING PT'S HOME MEDICATIONS AND IF THEY CAN BRING IT TO THE HOSPITAL. ABRAHAM SAID THAT THEY DO NOT HAVE ANY REFILLS OF THE PATIENT'S MEDICATION AND ARE UNABLE TO OBTAIN THEM. NOTIFIED JANELL IN PHARMACY.
--- NOTE | 2018-11-11 14:45 | NUR ---
PATIENT ASLEEP, IM SHOT WELL TOLERATED. VS 121/76 AL 80 T 98.4 RR 19
[2018-11-11 15:56] VITALS: BP 136/79
--- NOTE | 2018-11-11 16:30 | NUR ---
PER JANET FROM PHARMACY SHE WILL CALL SNF WHERE PATIENT CAME FROM AND WILL TRY TO OBTAIN HOME MEDS.
[2018-11-11 20:11] VITALS: BP 123/81
[2018-11-11] MEDS ORDERED: OLANZAPINE 5 MG TABLET PO SCH (21:00)
[2018-11-11] MEDS: RITONAVIR 100 MG PO SCH (21:28)
[2018-11-11] MEDS: CHOLECALCIFEROL 1,000 UNIT TABLET PO SCH (21:29)
[2018-11-11] MEDS: MIRTAZAPINE 15 MG TABLET PO SCH (21:29)
[2018-11-12] MEDS: TEMAZEPAM 7.5 MG CAPSULE PO PRN (00:47)
[2018-11-12] MEDS: LORAZEPAM 0.5 MG TABLET PO PRN ×4 (02:52→23:36)
[2018-11-12 07:30] VITALS: BP 164/81
[2018-11-12] MEDS: ACETAMINOPHEN 325 MG TABLET PO PRN (07:40)
[2018-11-12] MEDS: DOCUSATE SODIUM 100 MG CAPSULE PO SCH (08:12)
[2018-11-12] MEDS: FAMOTIDINE 20 MG TABLET PO SCH ×2 (08:12→16:06)
[2018-11-12] MEDS: ATORVASTATIN 10 MG TABLET PO SCH (08:12)
[2018-11-12] MEDS: [UNRECOGNIZED DRUG - OTHER] PO SCH (08:13)
[2018-11-12] MEDS: RITONAVIR 100 MG PO SCH ×2 (08:13→21:00)
[2018-11-12] MEDS: NAPROXEN 250 MG TABLET PO SCH ×2 (08:13→17:05)
[2018-11-12] MEDS ORDERED: TEMAZEPAM 7.5 MG CAPSULE PO PRN (11:00)
--- NOTE | 2018-11-12 11:40 | NUR ---
Initial Discharge Plan: Patient is a 68 year old male who currently resides at [facility] [[id number], [place] [address]; ]. Per patient, he likes the facility and would like to return when ready. adoption worker called and spoke with Gregory Valdez [ ], patient , who is also agreeable with patient returning to facility. Per banquet coordinator, Renata, patient is able to return to facility when ready. adoption worker will continue to collaborate with patient, patient family, and MD on a safe and proper discharge.
[2018-11-12] MEDS: FLUTICASONE/VILANTEROL 1 EACH BLST.W.DEV INH SCH (12:39)
[2018-11-12 15:48] VITALS: BP 144/91
[2018-11-12] MEDS: OLANZAPINE 5 MG TABLET PO SCH (16:06)
--- NOTE | 2018-11-12 18:18 | NUR ---
GPS: RECEIVED PATIENT AWAKE ON GERICHAIR ON 1:1 SITTER FOR SAFETY, PATIENT HYPERVERBAL, CONFUSED, SHOUTING HOWEVER ABLE TO REDIRECT COMPLIANT WITH MEDICATION AND TREATMENT, PATIENT ABLE TO WALK WITH ASSIST , DENIES SI AND HI, PRN MEDS GIVEN ORDERED, SAFETY PRECAUTION INSTILLED, WILL CONTINUE MONITOR
[2018-11-12 20:13] VITALS: BP 121/83
[2018-11-12] MEDS: CHOLECALCIFEROL 1,000 UNIT TABLET PO SCH (20:50)
[2018-11-12] MEDS: MIRTAZAPINE 15 MG TABLET PO SCH (20:50)
[2018-11-13] MEDS: TEMAZEPAM 15 MG CAPSULE PO PRN ×2 (01:27→23:56)
[2018-11-13 07:30] VITALS: BP 123/77
[2018-11-13] MEDS: OLANZAPINE 5 MG TABLET PO SCH ×2 (08:16→16:09)
[2018-11-13] MEDS: FAMOTIDINE 20 MG TABLET PO SCH ×2 (08:16→16:09)
[2018-11-13] MEDS: DOCUSATE SODIUM 100 MG CAPSULE PO SCH (08:16)
[2018-11-13] MEDS: ATORVASTATIN 10 MG TABLET PO SCH (08:16)
[2018-11-13] MEDS: RITONAVIR 100 MG PO SCH ×2 (08:17→20:22)
[2018-11-13] MEDS: NAPROXEN 250 MG TABLET PO SCH ×2 (08:17→17:01)
[2018-11-13] MEDS: FLUTICASONE/VILANTEROL 1 EACH BLST.W.DEV INH SCH (08:18)
[2018-11-13] MEDS: [UNRECOGNIZED DRUG - OTHER] PO SCH (08:18)
[2018-11-13] MEDS: LORAZEPAM 0.5 MG TABLET PO PRN ×2 (09:15→20:21)
--- NOTE | 2018-11-13 14:00 | NUR ---
WAS NOTIFIED BY PHARMACY THAT PT'S HAS ENOUGH MEDICATION PREZISTA FOR TWO DAYS ONLY AND OUR PHARMACY DOES NOT JUAN SUCH MEDICATION. CONTACTED PT'S FACILITY ([facility]) AND SPOKE WITH LULÚ PATTEN. SHE INFORMED THAT THE FACILITY PROVIDED ALL THE MEDICATION THAT PATIENT HAD. SHE ALSO STATED THAT THEY CANNOT ORDER THE MEDICATION WHILE THE PATIENT IS NOT PHYSICALLY AT THE FACILITY. SPOKE WITH THE PHARMACY ([facility]) WHO SAID THAT THEY ONLY FILL MEDICATIONS FOR CONTRACTED FACILITIES AND CANNOT SEND THE MEDICATION HERE. THE PHARMACY WAS NOTIFIED.
[2018-11-13 16:00] VITALS: BP 123/86
[2018-11-13 16:20] LABS: CREATININE 0.8 mg/dL (0.6-1.3); POTASSIUM 4.8 mmol/L (3.5-5.1)
--- NOTE | 2018-11-13 18:00 | NUR ---
GPS:RECEIVED PATIENT ALERT ORIENTED X2, PATIENT AMBULATORY WITH FWW,WITH 1:1 SITTER FOR SAFETY , PATIENT DENIES PAIN NO SOB NO DISTRESS, COMPLIANT WITH MEDICATION DENIES SUICIDAL AND HOMICIDAL IDEATION,PATIENT HYPERVERBAL WITH SOME LOOSE ASSOCIATION EASILY IRRITABLE , PATIENT ON FALL RISK PRECAUTION , ALL NEEDS MET WILL CONTINUE MONITOR
[2018-11-13] MEDS: CHOLECALCIFEROL 1,000 UNIT TABLET PO SCH (20:21)
[2018-11-13] MEDS: MIRTAZAPINE 15 MG TABLET PO SCH (20:22)
[2018-11-13 20:24] VITALS: BP 111/64
[2018-11-14] MEDS: LORAZEPAM 0.5 MG TABLET PO PRN ×3 (03:34→20:09)
[2018-11-14] MEDS: TRAMADOL HCL 50 MG TABLET PO PRN (03:34)
[2018-11-14] MEDS ORDERED: ALENDRONATE SODIUM 70 MG TABLET PO SCH (06:00)
[2018-11-14 07:30] VITALS: BP 112/79
[2018-11-14] MEDS: DOCUSATE SODIUM 100 MG CAPSULE PO SCH (08:50)
[2018-11-14] MEDS: [UNRECOGNIZED DRUG - OTHER] PO SCH (08:50)
[2018-11-14] MEDS: FLUTICASONE/VILANTEROL 1 EACH BLST.W.DEV INH SCH (08:50)
[2018-11-14] MEDS: ATORVASTATIN 10 MG TABLET PO SCH (08:50)
[2018-11-14] MEDS: FAMOTIDINE 20 MG TABLET PO SCH ×2 (08:50→16:29)
[2018-11-14] MEDS: OLANZAPINE 5 MG TABLET PO SCH ×2 (08:50→16:29)
[2018-11-14] MEDS: RITONAVIR 100 MG PO SCH ×2 (08:50→20:12)
[2018-11-14] MEDS: NAPROXEN 250 MG TABLET PO SCH ×2 (08:51→17:00)
--- NOTE | 2018-11-14 12:42 | NUR ---
PATIENT YELLING IN ACTIVITY ROOM, TRYING TO TAKE OTHER PATIENTS LUNCH TRAYS. NEEDS FREQUENT REDIRECTION FROM SITTER, RN AND OTHER STAFF MEMBERS. PRN AGITATION MEDICATION GIVEN
[2018-11-14 16:00] VITALS: BP 145/85
--- NOTE | 2018-11-14 18:28 | NUR ---
PATIENT ALERT ORIENTED X2, PATIENT AMBULATORY WITH FWW, 1:1 SITTER REMIANS PATIENT DENIES PAIN NO SOB NO DISTRESS, COMPLIANT WITH MEDICATION PATIENT COOPERATIVE WITH THE STAFF HOWEVER NEED FREQUENT REDIRECTION, ALL NEEDS MET WILL CONTINUE MONITOR
[2018-11-14 19:58] VITALS: BP 143/86
[2018-11-14] MEDS: MIRTAZAPINE 15 MG TABLET PO SCH (20:09)
[2018-11-14] MEDS: CHOLECALCIFEROL 1,000 UNIT TABLET PO SCH (20:09)
[2018-11-15] MEDS: TEMAZEPAM 15 MG CAPSULE PO PRN (00:14)
[2018-11-15 07:30] VITALS: BP 137/79
[2018-11-15] MEDS: ATORVASTATIN 10 MG TABLET PO SCH (08:38)
[2018-11-15] MEDS: FAMOTIDINE 20 MG TABLET PO SCH ×2 (08:38→17:16)
[2018-11-15] MEDS: OLANZAPINE 5 MG TABLET PO SCH ×2 (08:38→17:16)
[2018-11-15] MEDS: DOCUSATE SODIUM 100 MG CAPSULE PO SCH (08:38)
[2018-11-15] MEDS: [UNRECOGNIZED DRUG - OTHER] PO SCH (08:40)
[2018-11-15] MEDS: NAPROXEN 250 MG TABLET PO SCH ×2 (08:40→17:17)
[2018-11-15] MEDS: RITONAVIR 100 MG PO SCH ×2 (08:41→20:13)
[2018-11-15] MEDS: FLUTICASONE/VILANTEROL 1 EACH BLST.W.DEV INH SCH (08:55)
--- NOTE | 2018-11-15 12:16 | NUR ---
PT OWN ANTIVIRAL MEDICATION HAS RUN OUT. CALLED PT'S PARTNER, ABRAHAM AND LEFT MESSAGE TO CALL BACK. INFORMED PHARMACIST DEANDRA OF PT HAVING TO MISS DOSE DUE TO UNAVAILABILITY.
--- NOTE | 2018-11-15 12:18 | NUR ---
FIREARMS REPORT: suction worker completed and submitted a [employer] firearms report for a 5250 GD certification. A copy has been placed in patient chart.
[2018-11-15] MEDS: LORAZEPAM 0.5 MG TABLET PO PRN ×2 (14:54→21:41)
[2018-11-15 16:00] VITALS: BP 117/82
--- NOTE | 2018-11-15 16:01 | NUR ---
RECEIVED CALL BACK FROM ABRAHAM, PT'S , AND STATED HE DOES NOT HAVE ANY SUPPLY OF PT'S MEDICATION AT HOME. STATED EVERYTHING PT HAD WAS TAKEN TO [facility]. SPOKE TO PHARMACY, STATED THEY WILL CALL [facility].
[2018-11-15 16:29] LABS: MAGNESIUM 1.9 mg/dL (1.8-2.4); PHOSPHOROUS 3.5 mg/dL (2.5-4.9); POTASSIUM 4.6 mmol/L (3.5-5.1)
[2018-11-15 16:37] LABS: THYROID STIMULATING HORMONE 4.003 mIU/mL (0.358-3.740)
[2018-11-15 16:42] LABS: URIC ACID 3.7 mg/dL (3.5-7.2)
--- NOTE | 2018-11-15 18:04 | NUR ---
Gps/Tombstone Setter- Remains with 1:1Nursing supervision for safety. Ambulating with FWW, contact guard assist, reviewed safety, compliant with routine pm. medication. Needed redirections and prompting from time to time. Disorganized thought, jumping from one topic to another. Feeding self ind. after set up.
--- NOTE | 2018-11-15 19:00 | NUR ---
RECEIVED PATIENT AWAKE AND SITTING IN GERICHAIR IN ACTIVITIES ROOM WITH 1:1, WATCHING TV QUIETLY WITH OTHERS. PATIENT IS ALERT X 2-3. PATIENT HAS NO COMPLAINTS OF PAIN OR DISCOMFORT AT THIS TIME. ALL SAFETY AND FALL PRECAUTION MEASURES ARE IN PLACE. WILL CONTINUE TO MONITOR.
--- NOTE | 2018-11-15 19:30 | NUR ---
PATIENT'S SISTER CALLED FOR STATUS UPDATE ON PATIENT. I ADVISED THAT PATIENT HAS BEEN COOPERATIVE AND COMPLIANT PER PREVIOUS SHIFT REPORT AND CONTINUES TO BE THUS FAR INTO MY SHIFT. SISTER WILL CALL BACK TOMORROW TO CHECK ON PATIENT STATUS AGAIN.
[2018-11-15 19:46] VITALS: BP 127/82
[2018-11-15] MEDS: CHOLECALCIFEROL 1,000 UNIT TABLET PO SCH (20:13)
[2018-11-15] MEDS: MIRTAZAPINE 15 MG TABLET PO SCH (20:13)
[2018-11-16] MEDS: LORAZEPAM 0.5 MG TABLET PO PRN ×2 (03:52→14:08)
[2018-11-16] MEDS: TRAMADOL HCL 50 MG TABLET PO PRN (04:11)
[2018-11-16 07:30] VITALS: BP 121/59
[2018-11-16] MEDS: NAPROXEN 250 MG TABLET PO SCH ×2 (08:06→17:05)
[2018-11-16] MEDS: ATORVASTATIN 10 MG TABLET PO SCH (08:07)
[2018-11-16] MEDS: DOCUSATE SODIUM 100 MG CAPSULE PO SCH (08:07)
[2018-11-16] MEDS: OLANZAPINE 5 MG TABLET PO SCH ×2 (08:07→16:06)
[2018-11-16] MEDS: FAMOTIDINE 20 MG TABLET PO SCH ×2 (08:07→16:06)
[2018-11-16] MEDS: FLUTICASONE/VILANTEROL 1 EACH BLST.W.DEV INH SCH (08:07)
[2018-11-16] MEDS: RITONAVIR 100 MG PO SCH ×2 (08:08→20:11)
[2018-11-16] MEDS: [UNRECOGNIZED DRUG - OTHER] PO SCH (08:08)
[2018-11-16 08:41] LABS: CREATININE 0.9 mg/dL (0.6-1.3); PHOSPHOROUS 3.4 mg/dL (2.5-4.9); URIC ACID 3.5 mg/dL (3.5-7.2)
[2018-11-16 08:42] LABS: THYROID STIMULATING HORMONE 4.503 mIU/mL (0.358-3.740)
[2018-11-16 16:00] VITALS: BP 129/77
--- NOTE | 2018-11-16 18:02 | NUR ---
GPS: RECEIVED PATIENT AOX3 WITH SITTER FOR SAFETY, PATIENT COMPLIANT WITH MEDICATION, DENIES PAIN, DENIES SI AND HI, CALM AND COOPERATIVE WITH STAFF, ON MONITORING FOR FALL PRECAUTION WILL CONTINUE MONITOR
[2018-11-16] MEDS: CHOLECALCIFEROL 1,000 UNIT TABLET PO SCH (20:09)
[2018-11-16] MEDS: MIRTAZAPINE 15 MG TABLET PO SCH (20:10)
[2018-11-16 20:39] VITALS: BP 123/82
--- NOTE | 2018-11-16 21:40 | NUR ---
RECEIVED PATIENT IN ACTIVITY ROOM INTERACTING WITH PEERS AND HAD A 1;1 SITTER FOR SAFETY. APPEARS EASILY IRRITABLE. LATER WAS CALM AND COOPERATIVE WITH STAFF FOR HIS MEDS. DENIES SI/HI. ALSO DENIES PAIN. WILL CONTINUE TO MONITOR.
[2018-11-17] MEDS: TEMAZEPAM 15 MG CAPSULE PO PRN (00:01)
--- NOTE | 2018-11-17 06:48 | NUR ---
SLEPT FOR APPROX 1;30HRS. TALKED ALL THROUGH THE NIGHT
[2018-11-17 07:30] VITALS: BP 110/85
[2018-11-17] MEDS: ATORVASTATIN 10 MG TABLET PO SCH (08:07)
[2018-11-17] MEDS: [UNRECOGNIZED DRUG - OTHER] PO SCH (08:07)
[2018-11-17] MEDS: DOCUSATE SODIUM 100 MG CAPSULE PO SCH (08:07)
[2018-11-17] MEDS: OLANZAPINE 5 MG TABLET PO SCH ×2 (08:07→16:05)
[2018-11-17] MEDS: NAPROXEN 250 MG TABLET PO SCH ×2 (08:07→17:10)
[2018-11-17] MEDS: FAMOTIDINE 20 MG TABLET PO SCH ×2 (08:07→16:05)
[2018-11-17] MEDS: RITONAVIR 100 MG PO SCH ×2 (08:07→20:27)
[2018-11-17] MEDS: FLUTICASONE/VILANTEROL 1 EACH BLST.W.DEV INH SCH (08:12)
[2018-11-17 16:00] VITALS: BP 105/70
[2018-11-17] MEDS: LORAZEPAM 0.5 MG TABLET PO PRN (19:35)
[2018-11-17] MEDS: TRAMADOL HCL 50 MG TABLET PO PRN (19:35)
[2018-11-17 19:45] VITALS: BP 115/69
[2018-11-17] MEDS: CHOLECALCIFEROL 1,000 UNIT TABLET PO SCH (20:31)
[2018-11-17] MEDS: MIRTAZAPINE 15 MG TABLET PO SCH (20:34)
[2018-11-18] MEDS: TEMAZEPAM 15 MG CAPSULE PO PRN ×2 (01:09→23:06)
[2018-11-18 07:46] VITALS: BP 123/92
[2018-11-18] MEDS: NAPROXEN 250 MG TABLET PO SCH ×2 (08:10→17:01)
[2018-11-18] MEDS: RITONAVIR 100 MG PO SCH ×2 (08:10→20:08)
[2018-11-18] MEDS: FLUTICASONE/VILANTEROL 1 EACH BLST.W.DEV INH SCH (08:11)
[2018-11-18] MEDS: [UNRECOGNIZED DRUG - OTHER] PO SCH (08:11)
[2018-11-18] MEDS: FAMOTIDINE 20 MG TABLET PO SCH ×2 (08:11→16:06)
[2018-11-18] MEDS: DOCUSATE SODIUM 100 MG CAPSULE PO SCH (08:11)
[2018-11-18] MEDS: OLANZAPINE 5 MG TABLET PO SCH ×2 (08:11→16:06)
[2018-11-18] MEDS: ATORVASTATIN 10 MG TABLET PO SCH (08:11)
[2018-11-18] MEDS: LORAZEPAM 0.5 MG TABLET PO PRN (09:20)
[2018-11-18 15:40] VITALS: BP 116/79
--- NOTE | 2018-11-18 18:03 | NUR ---
GPS: RECEIVED PATIENT AOX2 PATIENT ON 1:1 SITTER FOR SAFETY, PATIENT COMPLIANT TO MEDICATION, HYPERVERBAL,DENIES PAIN 0/10 PAIN SCALE NO DISTRESS NOTED AT THIS TIME DENIES SI AND HI, WILL CONTINUE MONITOR
--- NOTE | 2018-11-18 19:45 | NUR ---
Received pt sitting on a chair. Sitter for safety. Pt shows no signs of acute distress. Pt pleasant when approached. Pt hyperverbal. Safety and comfort provided. Will continue to monitor.
[2018-11-18] MEDS: ACETAMINOPHEN 325 MG TABLET PO PRN (20:09)
[2018-11-18] MEDS: MIRTAZAPINE 15 MG TABLET PO SCH (20:09)
[2018-11-18] MEDS: CHOLECALCIFEROL 1,000 UNIT TABLET PO SCH (20:09)
[2018-11-18 20:10] VITALS: BP 131/80
[2018-11-19] MEDS: ACETAMINOPHEN 325 MG TABLET PO PRN (01:32)
[2018-11-19] MEDS: LORAZEPAM 0.5 MG TABLET PO PRN ×3 (01:32→12:56)
--- NOTE | 2018-11-19 06:35 | NUR ---
Pt slept 3.45 hours. Pt given tylenol at 2009h for pain. At 2306h restoril given as per pt request. At 0132h and 0637h Ativan and tylenol given for pt becaome agitated, screaming and banging the table. Pt improved condition after 2 hours. Prescribed medication given and pt tolerated it well. Safety and comfort provided. All needs are met. Will endorse accordingly to incoming nurse for continuity of care.
[2018-11-19 07:30] VITALS: BP 114/79
[2018-11-19] MEDS: NAPROXEN 250 MG TABLET PO SCH ×2 (08:14→17:15)
[2018-11-19] MEDS: OLANZAPINE 5 MG TABLET PO SCH ×2 (08:14→17:14)
[2018-11-19] MEDS: DOCUSATE SODIUM 100 MG CAPSULE PO SCH (08:14)
[2018-11-19] MEDS: FLUTICASONE/VILANTEROL 1 EACH BLST.W.DEV INH SCH (08:14)
[2018-11-19] MEDS: ATORVASTATIN 10 MG TABLET PO SCH (08:14)
[2018-11-19] MEDS: RITONAVIR 100 MG PO SCH ×2 (08:14→21:11)
[2018-11-19] MEDS: FAMOTIDINE 20 MG TABLET PO SCH ×2 (08:14→17:14)
[2018-11-19] MEDS: [UNRECOGNIZED DRUG - OTHER] PO SCH (08:14)
[2018-11-19] MEDS: TRAMADOL HCL 50 MG TABLET PO PRN (13:59)
--- NOTE | 2018-11-19 14:03 | NUR ---
GPS: RECEIVED PATIENT ALERT ORIENTED X1, PATIENT VERBALLY RESPONSIVE, HYPERVERBAL, ON 1:1 SITTER FOR SAFETY, DENIES SI AND HI, CALM COOPERATIVE ,DENIES SI AND HI, COMPLIANT WITH MEDICATION , DENIES PAIN , 0/10 PAINSCALE, ON FALL RISK PRECAUTION, GAVE REPORT TO OVERFLOW UNIT
[2018-11-19 19:53] VITALS: BP 134/80
--- NOTE | 2018-11-19 20:00 | NUR ---
RECEIVED PATIENT AWAKE AND ALERT IN ROOM WITH 1:1 SITTER. PATIENT HAS NO COMPLAINTS OF PAIN OR ACUTE DISTRESS AT THIS TIME. ALL SAFETY AND FALL PRECAUTION MEASURES ARE IN PLACE. CALL LIGHT AND PERSONAL ITEMS ARE WITHIN REACH AT ALL TIMES. WILL CONTINUE TO MONITOR.
[2018-11-19] MEDS: CHOLECALCIFEROL 1,000 UNIT TABLET PO SCH (20:58)
[2018-11-19] MEDS: MIRTAZAPINE 15 MG TABLET PO SCH (20:58)
[2018-11-19] MEDS: TEMAZEPAM 15 MG CAPSULE PO PRN (22:12)
[2018-11-20] MEDS: LORAZEPAM 0.5 MG TABLET PO PRN (00:03)
[2018-11-20] MEDS: TRAMADOL HCL 50 MG TABLET PO PRN (02:03)
--- NOTE | 2018-11-20 06:29 | NUR ---
PATIENT SLEPT INTERMITTENTLY THROUGHOUT NIGHT, FOR APPROXIMATELY 3 HOURS. PATIENT CAN BE REDIRECTED WHEN BECOMES LOUD AND WHEN HAS FLIGHTS OF IDEA. ALL PRESCRIBED MEDICATION WAS GIVEN ORDERED AND TOLERATED WELL. 1:1 SITTER REMAINED AT BEDSIDE THROUGHOUT NIGHT. ALL SAFETY AND FALL PRECAUTION MEASURES REMAIN IN PLACE. CALL LIGHT AND PERSONAL ITEMS ARE WITHIN REACH AT ALL TIMES.
--- NOTE | 2018-11-20 07:00 | NUR ---
RECEIVED PATIENT SITTING IN CHAIR. AOX2. DENIES PAIN OR SOB AT THIS TIME. 1:1 SITTER IN ROOM WITH PATIENT. SAFETY AND FALL PREVENTION PRECAUTIONS IN PLACE. BED LOCKED AND IN LOW POSITION. CALL LIGHT IN REACH. WILL CONTINUE TO MONITOR.
[2018-11-20] MEDS: FAMOTIDINE 20 MG TABLET PO SCH (07:52)
[2018-11-20] MEDS: DOCUSATE SODIUM 100 MG CAPSULE PO SCH (07:52)
[2018-11-20] MEDS: ACETAMINOPHEN 325 MG TABLET PO PRN (07:52)
[2018-11-20] MEDS: ATORVASTATIN 10 MG TABLET PO SCH (07:52)
[2018-11-20] MEDS: OLANZAPINE 5 MG TABLET PO SCH (07:52)
[2018-11-20] MEDS: NAPROXEN 250 MG TABLET PO SCH (07:53)
[2018-11-20] MEDS: [UNRECOGNIZED DRUG - OTHER] PO SCH (07:53)
[2018-11-20] MEDS: FLUTICASONE/VILANTEROL 1 EACH BLST.W.DEV INH SCH (07:54)
[2018-11-20] MEDS: RITONAVIR 100 MG PO SCH (07:55)
--- NOTE | 2018-11-20 09:52 | NUR ---
DC NOTE: Patient will be discharged to [facility] [[id number] [facility], [place] [address]; ] and transportation will be provided by ambulance at 1:00pm. Please arrange ambulance transportation for this patient. Acceptance to facility was received by Cheryl, online content coordinator, who states they are ready to accept the patient today. Patient is AxOx2, denies suicidal ideation, is able to plan for self-care, and is agreeable with discharge plan. ordnance equipment worker has called and spoken with patient , Gregory [[phone]], who is aware and agreeable with discharge plan. Patient will be followed by Dr. Severino (digital associate media director) and Dr. Naranjo (psychiatrist) at the facility. Patient has also been provided with mental health resources including [facility] [ ], Rad[facility] Candelario [ ], and the National Suicide Prevention Lifeline [ ].
[2018-11-20 12:01] VITALS: BP 138/86
--- NOTE | 2018-11-20 12:07 | NUR ---
PATIENT DISCHARGED TO [facility]. REPORT GIVEN TO PABLO DOSHI. AT THE FACILITY. DISCHARGE INSTRUCTIONS AND THE MEDICATION RECON PAPERS DONE AND SENT WITH PATIENT. BELONGINGS LIST COMPLETED AND BELONGINGS SENT WITH PATIENT. PATIENT LEFT VIA AMBULANCE WITH AMBULANCE STAFF. ABRAHAM PEREZ THE IS AWARE OF DISCHARGE. PT. DENIES SI/HI. STABLE AT TIME OF DISCHARGE. VITAL SIGNS WNL.
== END 2018-11-20 12:00 | DRG 885 ==
LOC: ER 14:40 → GPS 17:55 → GPSOV3 11-19 14:23
PROVIDERS: ADMIT Psychiatry & Neurology Psychiatry; ATTEND Internal Medicine
DX: F25.0 Schizoaffective disorder, bipolar type (principal); D68.59 Other primary thrombophilia; E22.2 Syndrome of inappropriate secretion of antidiuretic hormone; J44.9 Chronic obstructive pulmonary disease, unspecified; J84.10 Pulmonary fibrosis, unspecified; Z74.09 Other reduced mobility; F41.9 Anxiety disorder, unspecified; I10 Essential (primary) hypertension; Z66 Do not resuscitate; T50.905A Adverse effect of unspecified drugs, medicaments and biological substances, initial encounter; Y92.129 Unspecified place in nursing home as the place of occurrence of the external cause; E78.5 Hyperlipidemia, unspecified; Z79.83 Long term (current) use of bisphosphonates; I44.0 Atrioventricular block, first degree; F12.90 Cannabis use, unspecified, uncomplicated; Z79.899 Other long term (current) drug therapy; G47.00 Insomnia, unspecified
CPT/HCPCS: 36415; 70030-TC; 71045; 80307; 82533; 83735; 84100; 84300; 84443; 84481; 84550; 85025; 85730; 87086; 93005; 97110; 97116; A4663; G0480; G0480-TC; J1200; J1630; J2060; J2358; J8499